=== PATIENT | female | born 1945 | race Caucasian/White ===

== ENCOUNTER 2016-08-20 09:38 | Day surgery (SDC) | payer OTHER, BC ==
[2016-08-19 15:12] VITALS: BMI 22.4
[2016-08-20 12:03] VITALS: TEMP 97.6
[2016-08-20 12:56] VITALS: BP 124/61; PULSE 54
--- NOTE | 2016-08-23 12:51 | PATH ---
Surgical Pathology Report Patient Name: NORA DIALLO [facility]. Rec. #: [id number] /Age/Gender: 1945 (Age: 71) / F Account: [id number] Location: U-ENDOSCOPY Taken: 08/20/2016 Received: 08/20/2016 Reported: 08/23/2016 Physicians: Shabbir Robertson M.D. Specimen(s) Received A: BX POLYPS RECTUM B: BX PROXIMAL TRANSVERSE COLON POLYP C: BX ULCER ILEUM Clinical History Colon cancer screening, altered bowel habits Colon polyps, diverticulosis, hemorrhoids, ulcer ileum, r/o Crohn's Final Diagnosis A. RECTUM, POLYPS, BIOPSY: FRAGMENTS OF HYPERPLASTIC POLYPS. B. COLON, PROXIMAL TRANSVERSE, POLYP, BIOPSY: SERRATED ADENOMA. C. ILEUM, ULCER, BIOPSY: ILEUM MUCOSA WITH MILD ACTIVE INFLAMMATION WITH FOCAL SURFACE EROSION AND FOCAL MINIMAL CRYPT REGENERATIVE CHANGES (SEE COMMENT). NO EVIDENCE OF GRANULOMATA OR DYSPLASIA. Comment: The histologic findings are non-specific and may represent focal active ileitis of various etiologies including infections and drug/toxin injury. Only focal minimal crypt regenerative changes are seen; idiopathic bowel disease (Crohn's) without established chronicity, while less likely, cannot be completely excluded. Clinical, serological correlations and follow up are suggested. Electronically Signed Levi Rodrigez M.D. Gross Description A. Received in formalin, labeled "biopsy polyps rectum" are 3 way, irregular portions of soft tissue ranging from 0.2-0.3 cm in greatest dimension. The specimens are submitted in toto in one cassette. B. Received in formalin, labeled "biopsy proximal transverse colon polyp" is a way, irregular portion of soft tissue measuring 0.2 cm in greatest dimension. The specimen is submitted in toto in one cassette. C. Received in formalin, labeled "biopsy ulcer ileum" is a way, irregular portion of soft tissue measuring 0.4 cm in greatest dimension. The specimen is submitted in toto in one cassette. 08/20/201608/20/2016
== END 2016-08-20 12:56 | disposition home or self-care (01) ==
LOC: JASU-ENDO 09:38
PROVIDERS: ATTEND Internal Medicine Gastroenterology
PROC: 0DBP8ZX Excision of Rectum, Via Natural or Artificial Opening Endoscopic, Diagnostic (ICD-10-PCS; 2016-08-20)
PROC: 0DBL8ZX Excision of Transverse Colon, Via Natural or Artificial Opening Endoscopic, Diagnostic (ICD-10-PCS; 2016-08-20)
PROC: 0DBH8ZX Excision of Cecum, Via Natural or Artificial Opening Endoscopic, Diagnostic (ICD-10-PCS; principal; 2016-08-20 10:00)
DX: Z12.11 Encounter for screening for malignant neoplasm of colon (principal); Z80.0 Family history of malignant neoplasm of digestive organs; D12.3 Benign neoplasm of transverse colon; K62.1 Rectal polyp; K63.3 Ulcer of intestine; K57.30 Diverticulosis of large intestine without perforation or abscess without bleeding; K64.8 Other hemorrhoids
CPT/HCPCS: 88305-TC